=== PATIENT | female | born 1990 | race Caucasian/White ===

== ENCOUNTER 2016-03-20 14:37 | Emergency (ER) | payer OTHER ==
[~2016-03-20] VITALS: Ht 157.5 cm; Wt 55.3 kg
--- NOTE | 2016-03-20 15:37 | ED GENERAL ADULT ---
History of Present Illness General Chief Complaint: General Adult Stated Complaint: PT BEEN VOMITING AND BODY IS SORE Source: patient Exam Limitations: no limitations Vital Signs & Intake/Output Vital Signs & Intake/Output Vital Signs Date Time Temp Pulse Resp B/P Pulse O2 O2 Flow FiO2 Ox Delivery Rate 03/20 1736 112/64 03/20 1733 102/68 03/20 1729 98.1 84 18 99/66 100 Room Air 03/20 1538 98 Room Air 03/20 1449 98.9 117 16 146/88 95 Room Air ED Intake and Output 03/21 0000 03/20 1200 Intake Total Output Total Balance Patient 122 lb Weight Allergies Coded Allergies: No Known Allergies (03/20/16) Reconcile Medications Hyoscyamine (Levsin) 0.125 MG TABLET 1 TAB PO Q4 PRN ABDOMINAL SPASMS Ondansetron (Zofran Odt) 4 MG TAB.RAPDIS 1 TAB SL TID PRN NAUSEA Triage Note: PT STATES SHE HAS HAD VOMITING AND BODY ACHES FOR 2 DAYS. PT STATES SHE FEELS DEHYDRATED AND CAN'T KEEP ANYTHING DOWN. Triage Nurses Notes Reviewed? yes Onset: Gradual Duration: day(s): (2) Timing: remote history Injury Environment: home Severity: moderate Severity Numbers: 8 No Modifying Factors: none : No Patient currently breastfeeds: No HPI: Patient is a 26-year-old female presenting to the emergency department with chief complaint of nausea vomiting malaise and generalized abdominal discomfort that began 2 days ago. She reports that she cannot keep anything down. drinking water and Gatorade and everything she vomits up. No blood in emesis or stool. She reports that her significant other had similar symptoms a few days ago and then she got it. Positive chills but no fevers. No recent travel. No recent antibiotic use. I sure how many times she vomited or had diarrhea. "Too many to count". (KADY CABA) Past History Travel History Traveled to [place] past 21 day No Medical History Any Pertinent Medical History? see below for history Surgical History Surgical History: non-contributory Psychosocial History What is your primary language Micronesian Tobacco Use: Never used ETOH Use: occasional use Illicit Drug Use: denies illicit drug use Family History Hx Contributory? No (KADY CABA) Review of Systems Review of Systems Constitutional: Reports: malaise. Comments Review of systems: See HPI, All other systems negative. Constitutional, no fever or weight loss HEENT: No visual changes no sore throat no congestion Cardiovascular: No chest pain ,palpitation Skin, no jaundice no rashes Respiratory: No dyspnea cough sputum or hemoptysis GI: nausea, vomiting, diarrhea : No dysuria No hematuria Muscle skeletal: no back pain, no neck pain, Neurologic: No numbness no confusion Psych: No stress anxiety Immunology: No splenectomy or history of AIDS (KADY CABA) Physical Exam Physical Exam General Appearance: well developed/nourished, no apparent distress, alert, awake , comfortable Comments: Well-developed well-nourished person in no acute distress HEENT: extraocular motion intact, no nystagmus. Pupils equally round and reactive to light and accommodation. Nose is atraumatic. Pharynx normal. No swelling or edema. Dry oral mucosa. Neck: Supple, no lymphadenopathy, normal range of motion without pain or tenderness Back: Nontender, no CVA tenderness. Cardiovascular: Regular rate and rhythms no murmurs rubs or gallops, normal JVP Respiratory: Chest nontender. No respiratory distress.breath sounds clear to auscultation bilaterally Abdomen: Soft, diffuse tenderness to palpation, no rebound or guarding, nondistended, no appreciable organomegaly. Normal bowel sounds. No ascites Extremity: No edema Neuro: Alert oriented x3 Skin: No appreciable rash on exposed skin, skin is warm and dry. Psych: Mood and affect is normal, memory and judgment is normal. Core Measures ACS in differential dx? No CVA/TIA Diagnosis: No Severe Sepsis Present: No Septic Shock Present: No (KADY CABA) Progress Differential Diagnoses I considered the following diagnoses in my evaluation of the patient: Influenza , dehydration, gastroenteritis, electrolyte abnormality, acute kidney injury Plan of Care: Orders Procedure Date/time Status Add-on Test (ER Only) 03/20 1722 Active CULTURE,URINE 03/20 1700 Active RAPID VIRAL INFLUENZA A 03/20 1618 Complete URINALYSIS 03/20 1537 Complete LIPASE 03/20 1537 Complete HUMAN BETA HCG SCREEN 03/20 1537 Complete COMPREHENSIVE METABOLIC PANEL 03/20 1537 Complete CBC WITHOUT DIFFERENTIAL 03/20 1537 Complete AMYLASE 03/20 1537 Complete Laboratory Tests 03/20/16 1700: Urinalysis LIGHT H, Urine Color YEL, Urine Clarity HAZY H, Urine pH 6.5, Ur Specific [place] 1.025, Urine Protein TRACE H, Urine Ketones 40 H, Urine Nitrite NEG, Urine Bilirubin NEG, Urine Urobilinogen 1.0, Ur Leukocyte Esterase SMALL H, Ur Microscopic SEDIMENT EXAMINED, Urine RBC RARE, Urine WBC 10-15 H, Ur Epithelial Cells PACKD H, Urine Mucus MANY H, Urine Hemoglobin TRACE-INTACT , Urine Glucose NEG 03/20/16 1625: Anion Gap 13, Estimated GFR > 60, BUN/Creatinine Ratio 21.3, Glucose 112 H, Calcium 9.4, Total Bilirubin 1.3, AST 30, ALT 46, Alkaline Phosphatase 57, Total Protein 7.9, Albumin 4.8, Globulin 3.1, Albumin/Globulin Ratio 1.5, Amylase 38, Lipase 26, Total Beta HCG NEGATIVE, CBC w Diff NO MAN DIFF REQ, RBC 4.76, MCV 86.5, MCH 29.8, RDW 12.8, MPV 7.8, Gran % 95.0 H, Lymphocytes % 2.3 L, Monocytes % 2.6, Eosinophils % 0.1, Basophils % 0 L, Absolute Granulocytes 5.9, Absolute Lymphocytes 0.1 L, Absolute Monocytes 0.2, Absolute Eosinophils 0, Absolute Basophils 0, PUBS MCHC 34.4 Microbiology 03/20 1700 URINE ROUT: Urine Culture - RES Initial ED EKG: none Comments: Patient medicated with IV fluids. Also medicated with Phenergan. Patient tolerating by mouth fluids without nausea or vomiting. Patient be treated symptomatically. No abdominal pain on exam and reevaluation. (KDAY CABA) Departure Departure Time of Disposition: 1712 Disposition: HOME OR SELF CARE Condition: Stable Clinical Impression Primary Impression: Gastroenteritis Referrals: MARC PIZARRO,ENDY Orellana (PCP/Family) Additional Instructions: Follow-up with your primary care physician call to make an appointment. Increase fluids. Take Zofran as prescribed for nausea. Take Levsin as prescribed for abdominal discomfort. Return for worsening symptoms or concerns. Departure Forms: Customer Survey D/C INS-APPENDICITIS EXCLUSION General Discharge Information Prescriptions: Current Visit Scripts Ondansetron (Zofran Odt) 1 TAB SL TID PRN NAUSEA #20 TAB Hyoscyamine (Levsin) 1 TAB PO Q4 PRN ABDOMINAL SPASMS #20 TAB (KADY CABA) PA/LABOR DELIVERY RN Co-Sign Statement Statement: ED Attending supervision documentation- [] I saw and evaluated the patient. I have also reviewed all the pertinent lab results and diagnostic results. I agree with the findings and the plan of care as documented in the PA's/LABOR DELIVERY RN's documentation. [X] I have reviewed the ED Record and agree with the PA's/LABOR DELIVERY RN's documentation. [] Additions or exceptions (if any) to the PAs/LABOR DELIVERY RN's note and plan are summarized below: [] (LUCINDA PIZARRO,MARCELLE) Critical Care Note Critical Care Note Critical Care Time: non-applicable (KADY CABA)
[2016-03-20 16:29] LABS: ABSOLUTE BASOPHIL COUNT 0 /CUMM (0.0-0.2); ABSOLUTE EOSINOPHIL COUNT 0 /CUMM (0.0-0.7); ABSOLUTE GRANULOCYTE CT 5.9 /CUMM (1.4-6.5); ABSOLUTE LYMPH COUNT 0.1 /CUMM (1.2-3.4); ABSOLUTE MONOCYTE COUNT 0.2 /CUMM (0.10-0.60); BASOPHIL % 0 % (0.0-2.0); EOSINOPHIL % 0.1 % (0-5); HEMATOCRIT 41.2 % (37-47); MEAN CORPUSCULAR HGB 29.8 PG (27.0-31.0); MEAN CORPUSCULAR HGB CONC 34.4 G/DL (33.0-37.0); MEAN CORPUSCULAR VOLUME 86.5 FL (81.0-99.0); MEAN PLATELET VOLUME 7.8 FL (7.4-10.4); PLATELET COUNT 185 /CUMM (130-400); RBC DISTRIBUTION WIDTH 12.8 % (11.5-14.5); RED BLOOD CELL CT 4.76 /CUMM (4.20-5.40); WHITE BLOOD CELL COUNT 6.2 /CUMM (4.8-10.8)
[2016-03-20] MEDS ORDERED: LEVSIN0.125 M1 PO (17:14)
[2016-03-20] MEDS ORDERED: ZOFRAN ODT4 M1 SL (17:14)
== END 2016-03-20 17:36 ==
LOC: ERH 14:37
PROVIDERS: Physician Assistant
DX: K52.9 Noninfective gastroenteritis and colitis, unspecified (principal)
CPT/HCPCS: 81001; 87086; 87804; 87804-59; 96365; J2550